=== PATIENT | male | born 1940 | race Caucasian/White ===

== ENCOUNTER 2016-11-28 11:26 | Day surgery (SDC) | payer MEDICARE, BC ==
--- NOTE | ~2016-11-28 | EGD ---
EGD REPORT [facility] [address] 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 Estimated blood loss: None. Procedure: Pre-Anesthesia Assessment: - ASA Grade Assessment: III - A patient with severe systemic disease. After obtaining informed consent, the endoscope was passed under direct vision. Throughout the procedure, the patient's blood pressure, pulse, and oxygen saturations were monitored continuously. The Endoscope was introduced through the mouth, and advanced to the second part of duodenum. The GIF [id number] was introduced through the mouth, and advanced to the second part of duodenum. Findings: Endoscopic Finding : The examined esophagus was endoscopically normal. The entire examined stomach was endoscopically normal. Mild inflammation was found in the duodenal bulb. Endosonographic Finding : Three enlarged lymph nodes were visualized in the right pulmonary ligament region (level 9R). Suspect this was the finding noted on CT. No other corresponding lesions were identifed. These were thirteen mm from the primary tumor. The largest measured 23 mm by 14 mm in maximal cross-sectional diameter. The nodes were oval and hypoechoic. Fine needle aspiration was performed. Color Doppler imaging was utilized prior to needle puncture to confirm a lack of significant vascular structures within the needle path. Seven passes were made with the 22 gauge needle using a transesophageal approach. No stylet was used. A preliminary cytologic examination was not performed. Final cytology results are pending. Moderate hyperechoic material consistent with sludge was visualized endosonographically in the gallbladder body. There was no sign of significant endosonographic abnormality in the common bile duct. There was no sign of significant endosonographic abnormality in the EGD REPORT [address] [address] NAME: HANDY STOVER II : 40 [place]US : [place] [facility] [place]#: [id number] AGE: 76 ADM/REG DATE : 11/28/16 MR#: [id number] REPORT SERV DATE: 11/28/16 DICTATED BY: SAM JACKSON DATE: 11/28/16 REPORT STATUS : Draft TRANSCRIBED BY: [id number] DATE: 11/28/16 entire pancreas. There was no sign of significant endosonographic abnormality in the examined duodenum. Endosonographic images of the stomach were unremarkable. There was no sign of significant endosonographic abnormality in the esophagus. Impression: - Normal esophagus. - Normal stomach. - Duodenitis. - Three enlarged lymph nodes were visualized in the right pulmonary ligament region (level 9R). - Hyperechoic material consistent with sludge was visualized endosonographically in the gallbladder body. - There was no sign of significant pathology in the common bile duct. - There was no sign of significant pathology in the entire pancreas. - There was no sign of significant pathology in the examined duodenum. - Endosonographic images of the stomach were unremarkable. - There was no sign of significant pathology in the esophagus. Recommendation: - Await path results. - Return to previous diet. - Continue present medications. - Return to referring physician. Procedure Code(s): --- Professional --- 06307, Esophagogastroduodenoscopy, flexible, transoral; with transendoscopic ultrasound-guided intramural or transmural fine needle aspiration/biopsy(s) (includes endoscopic ultrasound examination of the esophagus, stomach, and either the duodenum or a surgically altered stomach where the jejunum is examined distal to the anastomosis) Diagnosis Code(s): --- Professional --- K29.80, Duodenitis without bleeding R59.0, Localized enlarged lymph nodes K83.8, Other specified diseases of biliary tract R59.1, Generalized enlarged lymph nodes CPT copyright 2013 [employer]. All rights reserved. EGD REPORT [facility] [address] [place] [address] [place]. [address] NAME: HANDY STOVER II : 40 STATUS : [place] [facility]#: [id number] AGE: 76 ADM/REG DATE : 11/28/16 MR#: [id number] REPORT SERV DATE: 11/28/16 DICTATED BY: SAM JACKSON DATE: 11/28/16 REPORT STATUS : Draft TRANSCRIBED BY: [email or web address] DATE: 11/28/16 The codes documented in this report are preliminary and upon pipe bending machine operator review may be revised to meet current compliance requirements. SAM JACKSON, 11/28/2016 2:43 PM Number of Addenda: 0 Note Initiated On: 11/28/2016 1:24 PM Scope Withdrawal Time 0 hours 0 minutes [address] [place], [place] [address] [address]
[~2016-11-28 11:26] MED LIST: ALLEGRA180 PO; AMARYL2 PO; AMB5 PO; ASAB PO; COQ-10200 MG PO; COZAAR100 MG PO; DIOVAN HCT320 MG/25 PO; L20 PO; LANTUSCART SC; LIPITOR20 PO; MEVACOR PO; MULTIPLE VIT PO; NEUR300 PO; NEUR600 PO; PRILO PO; VITAMIN D31000 UNIT PO; ZANTAC150 MG PO
[2016-11-28 12:29] LABS: BUN (BLOOD UREA NITROGEN) 41 MG/DL (6-23); CALCIUM, SERUM 8.7 MG/DL (8.5-10.4); CHLORIDE, SERUM 109 MMOL/L (96-112); CO2 (CARBON DIOXIDE) 26 MMOL/L (24-34); CREATININE 2.16 MG/DL (0.70-1.30); GFR AFRICAN AMERICAN 33 ML/MIN (>=60); GFR NON AFRICAN AMERICAN 29 ML/MIN (>=60); GLUCOSE, SERUM 113 MG/DL (60-99); SODIUM, SERUM 143 MMOL/L (135-148)
== END 2016-11-28 23:59 | disposition home health service (06) ==
LOC: DMU 11:26
PROVIDERS: Anesthesiology; Internal Medicine Gastroenterology
PROC: BD49ZZZ Ultrasonography of Duodenum (ICD-10-PCS; 2016-11-28)
PROC: 0D998ZX Drainage of Duodenum, Via Natural or Artificial Opening Endoscopic, Diagnostic (ICD-10-PCS; principal; 2016-11-28 13:30)
DX: K29.80 Duodenitis without bleeding (principal); R59.1 Generalized enlarged lymph nodes; G47.33 Obstructive sleep apnea (adult) (pediatric); K21.9 Gastro-esophageal reflux disease without esophagitis; N18.3 Chronic kidney disease, stage 3 (moderate); E11.22 Type 2 diabetes mellitus with diabetic chronic kidney disease; I12.9 Hypertensive chronic kidney disease with stage 1 through stage 4 chronic kidney disease, or unspecified chronic kidney disease; Z88.0 Allergy status to penicillin; Z87.891 Personal history of nicotine dependence; Z99.81 Dependence on supplemental oxygen; Z98.890 Other specified postprocedural states
CPT/HCPCS: 80048; 88173; 88184; 88185; 88305; C1725